=== PATIENT | female | born 1995 | race African-American/Black ===

== ENCOUNTER 2025-02-09 22:28 | Emergency (ER) | payer OTHER ==
[~2025-02-09] VITALS: Ht 170.2 cm; Wt 82.0 kg
[2025-02-09 22:41] VITALS: BP 147/78; TEMP 36.6; O2SAT 100
[2025-02-10] MEDS: LIDOCAINE 5% PATCH TOP SCH (00:58)
[2025-02-10] MEDS: KETOROLAC 15MG/ML VIAL IM ONE (00:58)
[2025-02-10] MEDS ORDERED: NAPR-1176 MT (02:15)
[2025-02-10] MEDS ORDERED: LIDO-53 TP (02:15)
[2025-02-10] MEDS ORDERED: CYCL5TAB3 MT (02:15)
[2025-02-10 02:36] VITALS: PULSE 58; RESP 14; O2SAT 100
== END 2025-02-10 02:36 | disposition home or self-care (01) ==
LOC: ER 22:28
DX: M79.10 Myalgia, unspecified site (principal); M54.9 Dorsalgia, unspecified; J45.909 Unspecified asthma, uncomplicated; Z79.1 Long term (current) use of non-steroidal anti-inflammatories (NSAID); Z88.2 Allergy status to sulfonamides; V89.2XXA Person injured in unspecified motor-vehicle accident, traffic, initial encounter; Y93.89 Activity, other specified; Y92.89 Other specified places as the place of occurrence of the external cause; Y99.8 Other external cause status
CPT/HCPCS: 99285; 70450; 81025; 71250; 74176; 96372; J1885